=== PATIENT | male | born 1955 | race Caucasian/White ===

== ENCOUNTER → 2019-10-15 10:25 | Outpatient (BNVA) | payer OTHER, SELFPAY | PROVIDERS: Family Provider Family Medicine; PCP Family Medicine; Visit Provider Specialist | DX: Z47.1 Aftercare following joint replacement surgery (principal); Z96.652 Presence of left artificial knee joint | CPT/HCPCS: 73560; 73565 ==

== ENCOUNTER 2019-11-06 06:12 | Day surgery (SDC) | payer OTHER, SELFPAY ==
[2019-11-05 08:36] VITALS: BMI 32.2
[2019-11-06 06:32] VITALS: BP 103/73; PULSE 65; RESP 16; TEMP 36.5; O2SAT 96
[2019-11-06] MEDS: sodium chloride 0.9% 1,000 ML 30 ML IV (06:48)
--- NOTE | 2019-11-06 06:51 | ANES.PREANE2 ---
Pre-Anesthetic Assessment Pre-Anesthetic Assessment: Height/Weight: Height 1.73 m Weight 96.162 kg Temp Pulse Resp BP Pulse Ox 97.7 F 65 16 103/73 96 11/06/19 06:32 11/06/19 06:32 11/06/19 06:32 11/06/19 06:32 11/06/19 06:32 Proposed Procedure: Operation Date: 11/06/19 07:30 Proposed Procedures p [id number](Not Applicable) - Yash Knutson MD Familial anesthetic complications: na Was Beta Jf taken within 24 hours: Yes Last intake: Intake Last Liquid Date 11/05/19 Last Liquid Time 20:30 Last Solid Date 11/05/19 Last Solid Time 08:30 Last Intake: 23:00 Social: Social History: No alcohol and No tobacco Exam: Pre-Anes Outpt Exam: alert, oriented x 3, clear to auscultation bilaterally and regular rate & rhythm Airway: Submandibular: WNL Cervical ROM: WNL MP: 3 Dentition: Partials Additional comments: upper. CLip in and pt sleeps in them Pulmonary: Pulmonary: None reported CV/HEM: CV/HEM: None reported : : None reported Hepatic: Hepatic: None reported GI: GI: None reported Metabolic: Metabolic: Thyroid Musc/skel: Musc/skel: None reported Neuropsych: Neuropsych: SIBLEY Anesthetic Plan: ASA status: 2 Anesthesia: Anesthesia Evaluation and MAC Risk of > 500 ml blood loss (7ml/kg in children): No Meds/Allergies Current Medications: Current Medications Generic Name Dose Route Start Last Admin Trade Name Freq PRN Reason Stop Dose Admin Sodium Chloride 1,000 mls @ 30 ml s/hr 11/06/19 06:30 11/06/19 06:48 Sodium Chloride 0.9% IV 11/07/19 06:29 30 mls/hr .Q24H RAJAN Administration PFSH Anesthesia PFSH: Medical History History of meniscal tear Hypothyroidism Primary osteoarthritis of left knee Torn tendon left knee Data Anesthesia Cardiac Studies: No Data to Display
--- NOTE | 2019-11-06 06:56 | PM.OPSURHP ---
Providers/Chief Complaint Primary Care Provider: Niurka Kelley MD Chief Complaint: UNABLE TO SEE DX History of Present Illness [address] is a 63 year old male who presents for screening colonoscopy Review of Systems General: Reports: 10 or more systems reviewed and unremarkable except in HPI and below Medications/Allergies Home Medications Medication Instructions Recorded Confirmed Last Taken Type levothyroxine 88 mcg tablet 88 mcg PO DAILY 10/11/19 11/05/19 11/05/19 History metoprolol succinate 25 mg capsule 25 mg PO DAILY 10/11/19 11/05/19 11/06/19 History sprinkle, ext. release 24 hr tamsulosin 0.4 mg capsule 0.4 mg PO DAILY 10/11/19 11/05/19 11/05/19 History Allergies Allergy/AdvReac Type Severity Reaction Status Date / Time No Known Allergies Allergy Verified 10/15/19 13:01 PFSH PFSH: Medical History History of meniscal tear Hypothyroidism Primary osteoarthritis of left knee Torn tendon left knee Vital Signs Vitals Signs: Last Vital Signs Temp 97.7 F 11/06/19 06:32 Pulse 65 11/06/19 06:32 Resp 16 11/06/19 06:32 BP 103/73 11/06/19 06:32 Pulse Ox 96 11/06/19 06:32 Weight: Weight last 48 hrs Weight 212 lb Physical Exam Narrative: EXAM NARRATIVE: HEENT: Normocephalic Eye: Sclera /conjunctiva normal Respiratory and chest: Bilateral clear breath sounds on auscultation Cardiovascular: Normal S1 and S2 heart sounds Abdomen: Soft to palpation Neurological: Oriented to place person and time Skin: Intact, no lesions appreciated on gross exam A&P Assessment and plan (1) Encounter for screening colonoscopy: The patient is scheduled for colonoscopy under MAC. The procedure risks and benefits, including infection, bleeding and bowel injury, has been explained to the patient, who has consented to the procedure. Information about the prep has been provided to the patient. Status: Acute Coding Level of Care Code Acute Patient Intake Representative for Chg Fwd Diagnoses Encounter for screening colonoscopy Z12.11
[2019-11-06 07:49] VITALS: BP 106/68; PULSE 58; RESP 16; TEMP 36.2; O2SAT 95
--- NOTE | 2019-11-06 07:54 | ANE.PACU2 ---
Inpatient post-anesthesia follow up: Airway intact: Yes Vital signs: Temperature 97.2 F Pulse Rate 58 Respiratory Rate 16 Blood Pressure 106/68 Pulse Oximetry 95 Oxygen Delivery Me thod Nasal Cannula Oxygen Flow Rate Fraction of Inspir ed Oxygen Hydration adequate: Yes Nausea and vomiting: No Pain level: 1 Mental status: Baseline
[2019-11-06 08:06] VITALS: BP 100/61; PULSE 52; RESP 16; O2SAT 96
== END 2019-11-06 08:12 | disposition home or self-care (01) ==
PROVIDERS: PCP Family Medicine; Visit Provider Surgery
PROC: 0DJD8ZZ Inspection of Lower Intestinal Tract, Via Natural or Artificial Opening Endoscopic (ICD-10-PCS; CPT 45378; principal; 2019-11-06 07:30)
DX: Z12.11 Encounter for screening for malignant neoplasm of colon (principal); K57.30 Diverticulosis of large intestine without perforation or abscess without bleeding; K64.8 Other hemorrhoids; K64.5 Perianal venous thrombosis
CPT/HCPCS: 12345; 45378; J2704; J7030

== ENCOUNTER → 2021-01-26 11:10 | Outpatient (BNVA) | payer OTHER, SELFPAY | PROVIDERS: PCP Family Medicine; Visit Provider Specialist | DX: Z96.652 Presence of left artificial knee joint (principal) | CPT/HCPCS: 73560; 73565 ==

== ENCOUNTER 2021-08-19 11:43 | Outpatient (CLI) | payer OTHER, SELFPAY ==
--- NOTE | 2021-08-19 12:00 | US_ITS ---
WS: [id number] RIGHT UPPER QUADRANT ULTRASOUND HISTORY: SEVERE RUQ ABDOMINAL PAIN/ABDOMINAL TENDERNESS COMPARISON: 05/13/2016 Liver: 13.5 cm in length. Coarse echotexture. No mass. No enlargement. Normal portal vein. Portal Vein: Normal hepatopetal flow with monophasic waveform. Gallbladder: Normally distended gallbladder. There is a nonshadowing nodule within the lumen of the g allbladder on the nondependent wall measuring 7 x 7 x 5 mm. No stone or shadowing. No wall thickening . CBD: 0.4 cm Pancreas: Completely obscured by bowel gas. Right kidney: 10.4 cm in length. Normal size and echogenicity. No hydronephrosis or mass. Aorta and IVC: Unremarkable abdominal aorta and IVC. No ascites. US/US abdomen limited [id number] IMPRESSION: 1. 7 mm gallbladder polyp. 2. No cholelithiasis or bile duct obstruction. 3. Coarse hepatic echotexture from hepatocellular disease.
== END 2021-08-19 11:44 | disposition home or self-care (01) ==
PROVIDERS: PCP Family Medicine; Visit Provider Family Medicine
DX: R10.821 Right upper quadrant rebound abdominal tenderness (principal); K82.4 Cholesterolosis of gallbladder; K76.89 Other specified diseases of liver; R10.11 Right upper quadrant pain
CPT/HCPCS: 76705

== ENCOUNTER 2023-02-07 15:34 | Outpatient (CLI) | payer MEDICARE, SELFPAY ==
--- NOTE | 2023-02-07 | MR_ITS ---
WS: [id number] MRI RIGHT KNEE HISTORY: RT KNEE INJURY COMPARISON: 01/26/2021 radiograph Quality this examination is limited. Anterior cruciate ligament: ACL is of limited quality. The fibers do appear intact and are normally o riented. Posterior cruciate ligament: Intact. Medial collateral ligament: Fluid surrounding the MCL. The MCL is intact. Very slight increased T2 si gnal in the superior MCL. There is a partial tear from the insertion site of the femoral condyle. Posterior lateral corner structures: Intact. Medial menisci: Limited quality evaluation. No tear identified. Lateral meniscus: Limited quality evaluation. No tear identified. Extensor mechanism: Distal quadriceps tendon and patellar tendons are intact. Fluid and soft tissue: Small suprapatellar joint effusion. No Montgomery's cyst. Osseous and articular structures: Patellofemoral compartment: Normal position of the patella. Mild increased T2 signal in the medial pa tellar retinaculum. Medial compartment: Mild narrowing of the medial compartment. Mild chondromalacia. No marrow edema. Lateral compartment: Moderate amount of edema in the lateral tibial plateau extending into the metaph ysis. Low signal in the tibial metaphysis consistent with trabecular injury. Healing fracture is like ly. There is no displacement. Cartilage is intact as visualized. There is T2 signal surrounding the distal semimembranosus tendon with thickening and increased T2 sig nal in the central tendon. There is fluid along the tendon sheath. No full-thickness tear. IMPRESSION: 1. Acute marrow edema lateral tibial plateau extending into the metaphysis. Trabecular injury. Suspec t nondisplaced healing fracture. 2. Quality of this examination is limited. 3. Moderate MCL and medial patellar retinacular ligament sprain. Insertion site tear proximal MCL. 4. Tendinopathy distal semimembranosus tendon. 5. Small suprapatellar joint effusion. 6. No meniscal tears are identified but the image quality is suboptimal.
== END 2023-02-07 15:35 | disposition home or self-care (01) ==
PROVIDERS: PCP Family Medicine; Visit Provider Family Medicine
DX: S83.411A Sprain of medial collateral ligament of right knee, initial encounter (principal); X58.XXXA Exposure to other specified factors, initial encounter; M67.863 Other specified disorders of tendon, right knee; M25.461 Effusion, right knee
CPT/HCPCS: 73721

== ENCOUNTER 2023-02-21 09:51 | Outpatient (CLI) | payer MEDICARE, SELFPAY | END 2023-02-21 09:52 | disposition home or self-care (01) | LOC: SPT 09:52 | PROVIDERS: PCP Family Medicine; Visit Provider Nurse Practitioner | DX: Z46.89 Encounter for fitting and adjustment of other specified devices (principal); M25.561 Pain in right knee; S82.124A Nondisplaced fracture of lateral condyle of right tibia, initial encounter for closed fracture; S83.411A Sprain of medial collateral ligament of right knee, initial encounter; W17.89XA Other fall from one level to another, initial encounter | CPT/HCPCS: 27530; 97760; 99214; L1832 ==

== ENCOUNTER → 2023-03-21 08:13 | Outpatient (BNVA) | payer MEDICARE, SELFPAY | PROVIDERS: PCP Family Medicine; Visit Provider Nurse Practitioner | DX: S83.411A Sprain of medial collateral ligament of right knee, initial encounter (principal); S82.124A Nondisplaced fracture of lateral condyle of right tibia, initial encounter for closed fracture; W13.3XXA Fall through floor, initial encounter | CPT/HCPCS: 73562; 99024 ==

== ENCOUNTER → 2023-04-11 08:47 | Outpatient (BNVA) | payer MEDICARE, SELFPAY | PROVIDERS: PCP Family Medicine; Visit Provider Nurse Practitioner | DX: S83.411D Sprain of medial collateral ligament of right knee, subsequent encounter; S82.124D Nondisplaced fracture of lateral condyle of right tibia, subsequent encounter for closed fracture with routine healing; W13.3XXD Fall through floor, subsequent encounter | CPT/HCPCS: 73562; 99024 ==

== ENCOUNTER → 2023-05-02 07:50 | Outpatient (BNVA) | payer MEDICARE, SELFPAY | PROVIDERS: PCP Family Medicine; Visit Provider Nurse Practitioner | DX: S83.411D Sprain of medial collateral ligament of right knee, subsequent encounter; S82.124D Nondisplaced fracture of lateral condyle of right tibia, subsequent encounter for closed fracture with routine healing; W13.3XXD Fall through floor, subsequent encounter | CPT/HCPCS: 73562; 99213 ==

== ENCOUNTER → 2023-07-04 13:42 | Outpatient (BNVA) | payer MEDICARE, SELFPAY | PROVIDERS: PCP Family Medicine; Visit Provider Nurse Practitioner | DX: S83.411D Sprain of medial collateral ligament of right knee, subsequent encounter; S82.124D Nondisplaced fracture of lateral condyle of right tibia, subsequent encounter for closed fracture with routine healing; W13.3XXD Fall through floor, subsequent encounter; M17.11 Unilateral primary osteoarthritis, right knee | CPT/HCPCS: 73560; 73565; 99213 ==

== ENCOUNTER → 2024-07-16 08:28 | Outpatient (BNVA) | payer MEDICARE, SELFPAY | PROVIDERS: PCP Family Medicine; Visit Provider Specialist | DX: S49.91XD Unspecified injury of right shoulder and upper arm, subsequent encounter (principal); M25.811 Other specified joint disorders, right shoulder; X58.XXXD Exposure to other specified factors, subsequent encounter | CPT/HCPCS: 73030; 99214 ==

== ENCOUNTER 2024-07-24 06:02 | Outpatient (CLI) | payer MEDICARE, SELFPAY ==
--- NOTE | 2024-07-24 06:30 | MR_ITS ---
WS: [id number] MRI RIGHT SHOULDER NONCONTRAST TECHNIQUE: Sagittal T2, coronal T1, T2 and proton density imaging. Axial gradient PDE imaging. CLINICAL INFORMATION: right shoulder pain COMPARISON: None. FINDINGS: Moderate to advanced arthritis AC joint with fluid and edema. Small amount of subacromial subdeltoid fluid. Subacromial spurring with impingement of the distal supraspinatus. Tendinopathy supraspinatus with a small distal undersurface tear and a partial-thickness distal insertional tear Infraspinatus appears intact. Normal teres minor. Subscapularis tendon appears intact. Biceps tendon appears intact within the bicipital groove. Diffuse T2 signal abnormality and irregularity intra-articular biceps tendon compatible with high-grade partial tear. Associated tendinopathy. Moderate to advanced degenerative narrowing glenohumeral articulation. MR/MR shoulder RT wo con* [id number] IMPRESSION: 1. Moderate to advanced arthritis AC joint with impingement of the distal supr aspinatus with subacromial spurring. 2. Tendinopathy with distal undersurface and insertional tear of supraspinatus . 3. Rotator cuff is otherwise intact. 4. High-grade partial tear with tendinopathy intra-articular biceps tendon. 5. Advanced degenerative narrowing of the glenohumeral articulation.
== END 2024-07-24 06:03 | disposition home or self-care (01) ==
PROVIDERS: PCP Family Medicine; Visit Provider Specialist
DX: M75.101 Unspecified rotator cuff tear or rupture of right shoulder, not specified as traumatic (principal); M19.011 Primary osteoarthritis, right shoulder; M75.41 Impingement syndrome of right shoulder; M77.8 Other enthesopathies, not elsewhere classified; M75.91 Shoulder lesion, unspecified, right shoulder; R93.7 Abnormal findings on diagnostic imaging of other parts of musculoskeletal system
CPT/HCPCS: 73221

== ENCOUNTER → 2024-07-30 13:46 | Outpatient (BNVA) | payer MEDICARE, SELFPAY | PROVIDERS: PCP Family Medicine; Visit Provider Specialist | DX: M19.011 Primary osteoarthritis, right shoulder (principal) | CPT/HCPCS: 20610; 99214; J1100; J2795; J3301; J9999 ==

== ENCOUNTER → 2024-09-25 11:08 | Outpatient (BNVA) | payer MEDICARE, SELFPAY | PROVIDERS: PCP Registered Nurse; Visit Provider Registered Nurse | DX: I10 Essential (primary) hypertension (principal); E03.9 Hypothyroidism, unspecified | CPT/HCPCS: 80061; 84443 ==

== ENCOUNTER → 2024-11-02 11:00 | Outpatient (BNVA) | payer MEDICARE, SELFPAY | PROVIDERS: PCP Family Medicine; Visit Provider Specialist | DX: M19.011 Primary osteoarthritis, right shoulder (principal) | CPT/HCPCS: 20610; J1100; J2795; J3301; J9999 ==

== ENCOUNTER → 2025-02-08 08:08 | Outpatient (BNVA) | payer MEDICARE, SELFPAY | PROVIDERS: PCP Registered Nurse; Visit Provider Specialist | DX: M19.011 Primary osteoarthritis, right shoulder (principal) | CPT/HCPCS: 20610; J1100; J2795; J3301; J9999 ==